=== PATIENT | male | born 1975 | race African-American/Black ===

== ENCOUNTER → 2016-12-31 | Outpatient (REF) | payer OTHER ==
[~2016-12-31] MED LIST: CLEO300C2 PO; LISINOPRIL-HCTZ; NORCOTAB PO; VIAG100T PO
== END ==
LOC: M LAB REF 16:52
PROVIDERS: ATTEND Otolaryngology
DX: H70.12 Chronic mastoiditis, left ear (principal)

== ENCOUNTER 2017-03-24 15:58 | Emergency (ER) | payer OTHER ==
[~2017-03-24] VITALS: Ht 182.9 cm; Wt 116.4 kg
[2017-03-24 15:58] VITALS: BP 123/77
[2017-03-24] MEDS ORDERED: VIAG100T PO (16:19)
[2017-03-24] MEDS ORDERED: LISINOPRIL-HCTZ (16:19)
[2017-03-24] MEDS ORDERED: CLEO300C2 PO (16:52)
[2017-03-24] MEDS ORDERED: NORCOTAB PO (16:52)
== END 2017-03-24 17:02 | disposition home or self-care (01) ==
LOC: M ED 15:58
DX: L02.01 Cutaneous abscess of face (principal); I10 Essential (primary) hypertension; Z79.899 Other long term (current) drug therapy

== ENCOUNTER → 2017-06-18 | Outpatient (CLI) | payer OTHER ==
[~2017-06-18] MED LIST changes: -CLEO300C2 PO; +GASTROGRAFIN SOLUTION 30ML (Q9963) As Ordered; +ISOVUE-370 76% 100ML VIAL (Q9967) As Ordered; -LISINOPRIL-HCTZ; -NORCOTAB PO; -VIAG100T PO
== END ==
LOC: M RAD 11:03
DX: R93.422 Abnormal radiologic findings on diagnostic imaging of left kidney (principal); N28.1 Cyst of kidney, acquired; K44.9 Diaphragmatic hernia without obstruction or gangrene
CPT/HCPCS: Q9963

== ENCOUNTER → 2020-06-30 | Outpatient (CLI) | payer SELFPAY ==
[~2020-06-30] MED LIST changes: +CLEO300C2 PO; -GASTROGRAFIN SOLUTION 30ML (Q9963) As Ordered; +HYDR-3715 PO; -ISOVUE-370 76% 100ML VIAL (Q9967) As Ordered; +LISINOPRIL-HCTZ; +VIAG100T PO
== END ==
LOC: M LABSMTC 14:12
PROVIDERS: ATTEND Pediatrics
DX: Z20.822 Contact with and (suspected) exposure to COVID-19 (principal)